=== PATIENT | female | born 1940 | race Hispanic/Latino ===

== ENCOUNTER 2019-01-07 19:29 | Emergency (ER) | payer OTHER ==
[2019-01-07 19:30] VITALS: BMI 19.5
[2019-01-07 20:05] VITALS: TEMP 97.6; O2SAT 97
--- NOTE | 2019-01-07 20:27 | C.PDOC ---
History Of Present Illness 78 year old female presents to the emergency department status-post falling and striking her right shoulder against a car two hours prior to arrival. Patient states that she was carrying a heavy object in her right hand, and fell towards her right side due to being unable to carry the weight. Patient denies head, neck, or chest trauma. She states that she takes Amlodipine and Losartan for high blood pressure. She denies history of diabetes or high cholesterol. Patient denies smoking or drinking. She denies being on any blood thinners or family hx of bleeding disorders. - HPI Chief Complaint (Nursing): Trauma History Per: Patient History/Exam Limitations: no limitations Onset/Duration Of Symptoms: Hrs (2) Injury Occurred (Timing): Hours Ago: (2) Location Of Injury: Right: Elbow, Shoulder - Fall Fall:Prior To Injury: Lost Balance Past Medical History Reviewed: Historical Data, Nursing Documentation, Vital Signs Vital Signs: Last Vital Signs Temp 97.6 F 01/07/19 19:56 Pulse 78 01/07/19 19:56 Resp 16 01/07/19 19:56 BP 166/72 H 01/07/19 19:56 Pulse Ox 97 01/07/19 19:56 - Medical History PMH: Arthritis, HTN Surgical History: No Surg Hx Family History: States: No Known Family Hx - Social History Hx Tobacco Use: No Hx Alcohol Use: No Hx Substance Use: No - Immunization History Hx Tetanus Toxoid Vaccination: No Hx Influenza Vaccination: No Hx Pneumococcal Vaccination: Yes Review Of Systems Constitutional: Negative for: Fever, Chills, Weakness, Malaise Eyes: Negative for: Pain, Vision Change, Conjunctivae Inflammation, Eyelid Inflammation, Redness ENT: Negative for: Ear Pain, Ear Discharge, Nose Pain, Nose Discharge, Nose Congestion, Mouth Pain, Mouth Swelling, Throat Pain, Throat Swelling, Other Cardiovascular: Negative for: Chest Pain, Palpitations, Orthopnea, Paroxysmal Noc. Dyspnea, Edema, Light Headedness Respiratory: Negative for: Cough, Shortness of Breath, Hemoptysis, SOB with Excertion, Pleuritic Pain, Sputum Gastrointestinal: Negative for: Nausea, Vomiting, Diarrhea, Constipation, Melena, Hematochezia, Hematemesis Genitourinary: Negative for: Dysuria, Frequency, Incontinence, Hematuria, Vaginal Discharge, Vaginal Bleeding Musculoskeletal: Positive for: Shoulder Pain (right), Arm Pain (right elbow). Negative for: Neck Pain, Back Pain, Hand Pain, Leg Pain Skin: Negative for: Rash, Lesions, Jaundice Neurological: Negative for: Weakness, Numbness, Confusion, Altered Mental Status, Headache Physical Exam - Physical Exam Appears: Well, Non-toxic, No Acute Distress Skin: Normal Color, Warm, Dry Head: Atraumatic, Normacephalic Eye(s): bilateral: Normal Inspection, PERRL, EOMI Ear(s): Bilateral: Normal Nose: Normal, No Epistaxis, No Septal Hematoma Oral Mucosa: Moist Tongue: Normal Appearing Lips: Normal Appearing Gingiva: Normal Appearing Throat: Normal, No Erythema, No Exudate, No Drooling Neck: Normal, Normal ROM, No Midline Cervical Tenderness, Supple, Other (no meningeal signs) Lymphatic: Normal Exam, No Adenopathy Chest: Symmetrical, No Tenderness Cardiovascular: Rhythm Regular, No Murmur Respiratory: Normal Breath Sounds, No Rales, No Rhonchi, No Wheezing Gastrointestinal/Abdominal: Normal Exam, Soft, No Tenderness, No Organomegaly, No Mass, No Distention, No Guarding Back: Normal Inspection, No CVA Tenderness, No Vertebral Tenderness Extremity: No Normal ROM (ROM to right shoulder and arm decreased due to pain), Tenderness (tenderness to right lateral shoulder and right superior scapula. Point tenderness to right elbow. NO snuff box tenderness. ) Pulses: Left Radial: Normal, Right Radial: Normal Neurological/Psych: Oriented x3, Normal Speech, Normal Cognition, Normal Cranial Nerves, No Cerebellar Signs, Normal Motor, Normal Sensation Gait: Steady ED Course And Treatment O2 Sat by Pulse Oximetry: 97 (RA) Pulse Ox Interpretation: Normal Medical Decision Making Medical Decision Makin78 year old female presents to the emergency department status-post falling and striking her right shoulder against a car two hours prior to arrival. No head trauma or pain outside of R shoulder or R elbow. No appreciable trauma noted on exam. No blood thinners or bleeding issues. Neck clear via nexus. Stable strong gait, normal neuro exam. Plan: CXR Two Views XR Right Shoulder Patient was offered pain medication and denied, only wants X-ray at this time. 2140 normal neuro exam, walking well w/ our any dizziness Xray unremarkable no fx or dislocation on CXR, R shoulder, R elbow R arm placed in Arm sling, remains N/V intact s/p sling given instructions on pain meds for tylenol at home and fall precautions pt endorsed understanding w/ family, clear for d/c home with return indications and f/u. Disposition - Disposition Referrals: Teddy Garcia MD [Staff Provider] - [facility] [Outside] [facility] [Outside] [facility] [Outside] Disposition: HOME/ ROUTINE Disposition Time: 21:35 Condition: GOOD Additional Instructions: SEE YOUR ORTHOPEDIC DOCTOR OR ONE WE HAVE RECCOMENDED WITHIN 1 WEEK. RETURN IF ANY OTHER ISSUES. YOU CAN TAKE TYLENOL FOR THE PAIN IN YOUR SHOULDER WRITTEN ON THE BOTTLE [place] [address] [place], thank you for letting us take care of you today. Your provider was Uday Chavez and you were treated for FALL. The emergency medical care you received today was directed at your acute symptoms. If you were prescribed any medication, please fill it and take as directed. It may take several days for your symptoms to resolve. Return to the Emergency Department if your symptoms worsen, do not improve, or if you have any other problems. Please contact your doctor or call one of the physicians/clinics you have been referred to that are listed on the Patient Visit Information form that is included in your discharge packet. Bring any paperwork you were given at discharge with you along with any medications you are taking to your follow up visit. Our treatment cannot replace ongoing medical care by a primary care provider outside of the emergency department. Thank you for allowing the [facility] team to be part of your care today. If you had an X-Ray or CT scan: A Radiologist will review the ED reading if any change in treatment is needed we will contact you. If you had a blood, urine, or wound culture: It will take several days for the results, if any change in treatment is needed we will contact you. If you had an STI test: It will take 48 hours for the results. Please call after 1 week if you have not heard back. Instructions: Preventing Falls in the Older Adult, Contusion (DC), Shoulder Pain (DC) Forms: [facility] ([place]) - Clinical Impression Clinical Impression: Fall, Shoulder contusion - Scribe Statement The provider has reviewed the documentation as recorded by the Scribe (Félix Ridge) Provider Attestation: All medical record entries made by the Scribe were at my direction and persona lly dictated by me. I have reviewed the chart and agree that the record accurately reflects my personal performance of the history, physical exam, medical decision making, and the department course for this patient. I have also personally directed, reviewed, and agree with the discharge instructions and disposition.
[2019-01-08 00:02] VITALS: BP 128/80; PULSE 88; RESP 18
--- NOTE | 2019-01-08 15:44 | RAD ---
Date of service: 01/07/2019 PROCEDURE: Radiographs of the Right Shoulder HISTORY: Fall COMPARISON: No prior FINDINGS: BONES: No fracture. 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 OTHER FINDINGS: None. IMPRESSION: No fracture. 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
--- NOTE | 2019-01-08 17:34 | RAD ---
Date of service: 01/07/2019 HISTORY: Fall COMPARISON: Comparison made with prior chest radiograph dated 04/17/2011. TECHNIQUE: 1 view obtained. FINDINGS: LUNGS: Coarsened and increased interstitial markings; rule out chronic changes of COPD or possibly underlying viral illness. Bibasilar atelectasis left greater than right. Mild biapical pleural thickening. PLEURA: No significant pleural effusion identified, no pneumothorax apparent. CARDIOVASCULAR: No aortic atherosclerotic calcification present. Normal cardiac size. No pulmonary vascular congestion. OSSEOUS STRUCTURES: No significant abnormalities. VISUALIZED UPPER ABDOMEN: Normal. OTHER FINDINGS: None. IMPRESSION: Coarsened and increased interstitial markings; rule out chronic changes of COPD or possibly underlying viral illness. Bibasilar atelectasis left greater than right. Mild biapical pleural thickening.
--- NOTE | 2019-01-08 18:07 | RAD ---
Date of service: 01/07/2019 PROCEDURE: Radiographs of the right elbow. HISTORY: fall COMPARISON: No prior. TECHNIQUE: 3 views obtained. FINDINGS: BONES: Normal. No fracture. JOINTS: Normal. No osteoarthritis. SOFT TISSUES: Normal. JOINT EFFUSION: None. OTHER FINDINGS: None. IMPRESSION: Unremarkable radiographs of the right elbow.
== END 2019-01-07 21:30 | disposition home or self-care (01) ==
LOC: C.ER 19:29
DX: S40.011A Contusion of right shoulder, initial encounter (principal); W18.30XA Fall on same level, unspecified, initial encounter